=== PATIENT | female | born 2000 | race Caucasian/White ===

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

== ENCOUNTER 2019-05-22 11:19 | Inpatient (IN) | payer OTHER ==
[~2019-05-22] VITALS: Ht 160 cm; Wt 80.3 kg
[2019-05-22] VITALS (14 sets, daily range): BP systolic 106–141; BP diastolic 56–94; PULSE 59–98; RESP 12–20; Ht 160 cm; Wt 80.3 kg
[~2019-05-22 11:19] MED LIST: ACET-141 PO; CEFAZOLIN 2 GM/50 ML (PMX) 50 ML IVPB SCH; IBUP-1561 PO
[2019-05-22] MEDS: LACTATED RINGER'S 1,000 ML (ENTER RATE) IV SCH ×2 (11:57→21:51)
[2019-05-22] MEDS ORDERED: MIDAZOLAM 1 MG/ML 2 ML INJ ONE (12:15)
[2019-05-22] MEDS ORDERED: SEVOFLURANE 15 MIN ONE (12:15)
[2019-05-22] MEDS ORDERED: DEXAMETHASONE 4 MG/ML 5 ML INJ ONE (12:15)
[2019-05-22] MEDS ORDERED: ONDANSETRON 4 MG INJ ONE (12:15)
[2019-05-22] MEDS ORDERED: CEFAZOLIN 1 GM INJ ONE ×2 (12:16→18:33)
[2019-05-22] MEDS ORDERED: LIDOCAINE 100 MG SYRINGE ONE (12:16)
[2019-05-22] MEDS ORDERED: PROPOFOL 0 ML ONE (12:16)
[2019-05-22] MEDS ORDERED: ROCURONIUM 50 MG INJ ONE ×2 (12:16→18:32)
[2019-05-22] MEDS ORDERED: BUPIVACAINE 0.25%/EPI (MDV) 50 ML VIAL INJ ONE (17:30)
[2019-05-22] MEDS ORDERED: ONDANSETRON 4 MG INJ IV PRN ×2 (18:30→20:00)
[2019-05-22] MEDS ORDERED: METOCLOPRAMIDE 10 MG INJ IV PRN ×2 (18:30→20:00)
[2019-05-22] MEDS ORDERED: IBUPROFEN 800 MG TAB PO PRN (18:30)
[2019-05-22] MEDS ORDERED: morphine 2 MG INJ IV PRN (18:30)
[2019-05-22] MEDS ORDERED: PROPOFOL 20 ML ONE (18:32)
[2019-05-22] MEDS ORDERED: LIDOCAINE 2% (SDV) 5 ML INJ ONE (18:32)
[2019-05-22] MEDS ORDERED: KETOROLAC 30 MG INJ ONE (19:16)
[2019-05-22] MEDS ORDERED: NEOSTIGMINE 3 MG/3 ML SYRINGE ONE (19:17)
[2019-05-22] MEDS ORDERED: GLYCOPYRROLATE 0.4 MG INJ ONE (19:18)
[2019-05-22] MEDS ORDERED: FENTAnyl 50 MCG/ML VIAL ONE (19:37)
[2019-05-22] MEDS: FENTAnyl 50 MCG/ML VIAL IV PRN ×4 (19:44→20:27)
[2019-05-22] MEDS ORDERED: KETOROLAC 30 MG INJ IV PRN (20:00)
[2019-05-22] MEDS ORDERED: HYDROmorphONE 1 MG/5 ML IV SYRINGE IV PRN ×3 (20:00)
[2019-05-22] MEDS ORDERED: EPHEDrine 25 MG/5 ML SYG IV PRN (20:00)
[2019-05-22] MEDS ORDERED: DIPHENHYDRAMINE 50 MG INJ IV PRN (20:00)
[2019-05-22] MEDS ORDERED: ALBUTEROL 0.083% (NEB) 2.5 MG/3 ML AMP HHN PRN (20:00)
[2019-05-22] MEDS ORDERED: MIDAZOLAM 1 MG/ML 2 ML INJ IV PRN (20:00)
[2019-05-22] MEDS ORDERED: LABETALOL HCL 20MG INJ IV PRN (20:00)
[2019-05-22] MEDS ORDERED: hydrALAzine 20 MG INJ IV PRN (20:00)
[2019-05-22] MEDS ORDERED: OXYCODONE/ACETAMINOPHEN (5/325) TAB PO PRN ×2 (20:00)
[2019-05-22] MEDS ORDERED: FENTAnyl 50 MCG/ML VIAL IV PRN ×2 (20:00)
[2019-05-22] MEDS ORDERED: MEPERIDINE 25 MG INJ IV PRN (20:00)
[2019-05-23] VITALS (7 sets, daily range): BP systolic 116–134; BP diastolic 60–80; PULSE 61–101; RESP 16–19
[2019-05-23] MEDS ORDERED: MAGNESIUM CITRATE 300 ML BTL PO ONE (09:30)
[2019-05-23] MEDS: ENOXAPARIN 40 MG/0.4 ML SYG SC SCH (09:34)
[2019-05-23] MEDS: OXYCODONE/ACETAMINOPHEN (5/325) TAB PO PRN (13:28)
[2019-05-23] MEDS ORDERED: MAGNESIUM HYDROXIDE 30ML CUP PO ONE (13:30)
[2019-05-23] MEDS: DOCUSATE SODIUM 100 MG CAP PO SCH (21:04)
[2019-05-24 01:47] VITALS: BP 137/71; PULSE 83; RESP 18
[2019-05-24] MEDS: OXYCODONE/ACETAMINOPHEN (5/325) TAB PO PRN (07:33)
[2019-05-24 08:43] VITALS: BP 132/73; PULSE 89; RESP 18
[2019-05-24] MEDS: DOCUSATE SODIUM 100 MG CAP PO SCH (09:12)
[2019-05-24] MEDS: ENOXAPARIN 40 MG/0.4 ML SYG SC SCH (09:13)
[2019-05-24 15:01] VITALS: BP 129/76; PULSE 88; RESP 18
== END 2019-05-24 15:52 | disposition home or self-care (01) | DRG 743 ==
LOC: REC 11:19 → EDSTATUS 13:00 → MS1 21:02
PROVIDERS: ADMIT Specialist; ATTEND Specialist
PROC: 0UB10ZZ Excision of Left Ovary, Open Approach (ICD-10-PCS; principal; 2019-05-22 13:00)
DX: N83.8 Other noninflammatory disorders of ovary, fallopian tube and broad ligament (principal)
CPT/HCPCS: 76856; 84703; 85025; 88104; 88305; J0690; J1100; J1650; J1885; J2001; J2250; J2405; J2710; J3010; J7120